=== PATIENT | male | born 1955 | race African-American/Black ===

== ENCOUNTER 2019-09-08 11:13 | Emergency (ER) | payer BC ==
[2019-09-08] MEDS ORDERED: Adacel (T-DAP) 0.5 ML SYRINGE ONE (11:21)
[2019-09-08] MEDS ORDERED: Ibuprofen 800 MG TAB ONE (11:22)
--- NOTE | 2019-09-08 11:42 | RAD ---
XR Foot Rt 3 View STANDARD HISTORY: Injury, right foot pain FINDINGS: There is a minimally displaced fracture involving the neck of the distal phalanx of the second digit.
[2019-09-08] MEDS ORDERED: traMADol HCl 50 MG TAB ONE (11:54)
== END 2019-09-08 12:00 | disposition home or self-care (01) ==
LOC: SCSER 11:13
DX: S92.534A Nondisplaced fracture of distal phalanx of right lesser toe(s), initial encounter for closed fracture (principal); I10 Essential (primary) hypertension; V69.9XXA Occupant (driver) (passenger) of heavy transport vehicle injured in unspecified traffic accident, initial encounter
CPT/HCPCS: 90471; 90715